=== PATIENT | male | born 1945 | race Caucasian/White ===

== ENCOUNTER 2021-08-29 13:30 | Outpatient (RCR) | payer MEDICARE, BC, SELFPAY ==
--- NOTE | 2021-08-17 14:10 | URNOTE ---
Received request for prior auth for Mimi([id number]). This has been approved as prescribed from 08/12/2021-10/13/2021. REf # [id number]
[2021-08-19 08:52] VITALS: BP 127/75; PULSE 70; RESP 16; TEMP 36; O2SAT 96
[2021-08-19] MEDS: IRON SUCROSE COMPLEX 200 MG in 0.9 % SODIUM CHLORIDE 100 ml 100 ML 440 MG IVPB (09:49)
[2021-08-22 08:34] VITALS: BP 117/70; PULSE 66; RESP 16; TEMP 35.9; O2SAT 97
[2021-08-22] MEDS: IRON SUCROSE COMPLEX 200 MG in 0.9 % SODIUM CHLORIDE 100 ml 100 ML 440 MG IVPB (08:47)
[2021-08-22 08:52] VITALS: BP 117/70; PULSE 66; RESP 16; TEMP 35.9; O2SAT 97
[2021-08-24 08:42] VITALS: BP 124/76; PULSE 91; RESP 16; TEMP 36; O2SAT 96
[2021-08-24] MEDS: IRON SUCROSE COMPLEX 200 MG in 0.9 % SODIUM CHLORIDE 100 ml 100 ML 440 MG IVPB (08:58)
[2021-08-24] MEDS: 0.9 % SODIUM CHLORIDE 250 ml IV (08:58)
[2021-08-24] MEDS: SODIUM CHLORIDE 0.9 % (FLUSH) 10 ML SYRINGE IVF (09:18)
[2021-08-26 08:41] VITALS: BP 123/72; PULSE 72; RESP 16; TEMP 36.4; O2SAT 96
[2021-08-26] MEDS: SODIUM CHLORIDE 0.9 % (FLUSH) 10 ML SYRINGE IVF (09:06)
[2021-08-26] MEDS: IRON SUCROSE COMPLEX 200 MG in 0.9 % SODIUM CHLORIDE 100 ml 100 ML 440 MG IVPB (09:06)
[2021-08-26] MEDS: 0.9 % SODIUM CHLORIDE 250 ml IV (09:06)
[2021-08-26 09:11] VITALS: BP 123/72; PULSE 72; RESP 16; TEMP 36.4; O2SAT 96
[2021-08-29 13:28] VITALS: BP 110/63; PULSE 72; RESP 16; TEMP 36.8; O2SAT 96
[2021-08-29] MEDS: IRON SUCROSE COMPLEX 200 MG in 0.9 % SODIUM CHLORIDE 100 ml 100 ML 440 MG IVPB (13:58)
[2021-08-29] MEDS: 0.9 % SODIUM CHLORIDE 250 ml IV (13:58)
== END 2021-09-11 23:59 | disposition home or self-care (01) ==
LOC: CCIC 13:30
PROVIDERS: PCP Internal Medicine; Visit Provider Internal Medicine
DX: D50.9 Iron deficiency anemia, unspecified (principal)
CPT/HCPCS: 96365; 96374; J1756; J7050

== ENCOUNTER 2021-12-13 13:32 | Outpatient (CLI) | payer MEDICARE, BC, SELFPAY ==
[2021-12-13 09:56] LABS: Albumin* 3.7 g/dL (3.3-5.0); Chloride* 107 mmol/L (96-114); Potassium* 4.5 mmol/L (3.6-5.1); Sodium* 140 mmol/L (135-149)
[2021-12-13 09:58] LABS: Bilirubin Total* 0.6 mg/dL (0.1-1.5); Carbon Dioxide* 25 mmol/L (20-32); Cholesterol* 138 mg/dL (90-199); Creatinine* 1.3 mg/dL (0.5-1.5); Estimated Glomerular Filt Rate 57 ml/min
[2021-12-13 09:59] LABS: Aspartate Amino Transferase* 39 U/L (12-35); Blood Urea Nitrogen* 24 mg/dL (7-30); Glucose* 93 mg/dL (60-115); Total Protein* 6.2 g/dL (6.0-8.3)
[2021-12-13 10:00] LABS: Alanine Aminotransferase* 26 U/L (4-50); Alkaline Phosphatase* 42 U/L (40-150); Calcium* 9.5 mg/dL (8.4-10.6); HDL Cholesterol* 34 mg/dL (>=40); LDL Cholesterol Calculated 54 mg/dL (<100); Triglycerides* 250 mg/dL (40-149)
[2021-12-13 10:04] LABS: Creatinine Urine 152.9 mg/dL
[2021-12-13 10:08] LABS: Microalbumin Creatinine Ratio 10 mg/g (0-30); Microalbumin Urine 2 mg/dL
== END 2021-12-13 13:33 | disposition home or self-care (01) ==
PROVIDERS: PCP Internal Medicine; Visit Provider Internal Medicine
DX: E11.51 Type 2 diabetes mellitus with diabetic peripheral angiopathy without gangrene (principal); D64.9 Anemia, unspecified; E03.9 Hypothyroidism, unspecified; I10 Essential (primary) hypertension
CPT/HCPCS: 80053; 80061; 82043; 82570

== ENCOUNTER 2021-12-15 09:06 | Outpatient (CLI) | payer MEDICARE, BC, SELFPAY ==
[2021-12-15 10:32] LABS: Immature Reticulocyte Fraction 13.3 % (2.3-13.4); Reticulocyte Hemoglobin Equivi 34.9 pg (29.0-35.0); Reticulocyte Percent 2.8 % (0.5-2.0); Reticulocytes Absolute 0.09 # (0.03-0.08)
[2021-12-15 10:33] LABS: Iron* 113 ug/dL (49-181)
[2021-12-15 10:43] LABS: Percent Iron Saturation 33 % (20-50); Total Iron Binding Capacity 347 ug/dL (261-462)
[2021-12-15 11:24] LABS: Vitamin B12* 740 pg/mL (243-894)
[2021-12-17 09:19] LABS: Folate, Serum >22.3 ng/mL (>=5.9)
== END 2021-12-15 09:07 | disposition home or self-care (01) ==
PROVIDERS: PCP Internal Medicine; Visit Provider Internal Medicine
DX: E11.9 Type 2 diabetes mellitus without complications (principal); D64.9 Anemia, unspecified; I10 Essential (primary) hypertension; E78.5 Hyperlipidemia, unspecified
CPT/HCPCS: 82607; 82728; 82746; 83540; 83550; 84443; 85045

== ENCOUNTER 2022-06-12 14:26 | Outpatient (CLI) | payer MEDICARE, BC, SELFPAY | END 2022-06-12 14:27 | disposition home or self-care (01) | PROVIDERS: PCP Internal Medicine; Visit Provider Internal Medicine | DX: R53.83 Other fatigue (principal); D64.9 Anemia, unspecified; E11.51 Type 2 diabetes mellitus with diabetic peripheral angiopathy without gangrene | CPT/HCPCS: 80053; 83540; 83550; 84443 ==

== ENCOUNTER 2022-10-18 07:50 | Outpatient (CLI) | payer MEDICARE, BC, SELFPAY | END 2022-10-18 07:51 | disposition home or self-care (01) | LOC: NFLDREF 12:17 | PROVIDERS: PCP Internal Medicine; Referring Provider Internal Medicine; Visit Provider Internal Medicine | DX: D64.9 Anemia, unspecified (principal) | CPT/HCPCS: 82728; 83540; 83550 ==

== ENCOUNTER 2023-04-17 08:53 | Outpatient (CLI) | payer MEDICARE, BC, SELFPAY | END 2023-04-17 08:54 | disposition home or self-care (01) | LOC: NFLDREF 08:54 | PROVIDERS: PCP Internal Medicine; Visit Provider Internal Medicine | DX: R53.83 Other fatigue (principal); E11.9 Type 2 diabetes mellitus without complications | CPT/HCPCS: 83540; 83550 ==

== ENCOUNTER 2023-05-15 08:15 | Outpatient (RCR) | payer MEDICARE, BC, SELFPAY ==
--- NOTE | 2023-04-24 09:49 | PT.OPEX ---
PT [place] Outpatient Eval PT [facility] Outpatient Eval Start: 04/24/23 07:04 Freq: Status: Active Protocol: Document 04/24/23 07:04 MLS (Rec: 04/24/23 09:47 MLS [id number]) E-signed By Mary nAn Marinelli DPT Physical Therapy Outpatient Evaluation Insurance Information Recert Due Date 07/22/23 Insurance Name Medicare B Medical Diagnosis R26.81 Unsteadiness on feet Treating Diagnosis Balance LE strengthening Referring MD Zain Cline MD Subjective Subjective Patient is a 78 year old male who presents to physical therapy with signs and symptoms consistent with decreased balance and unsteadiness on his feet. He states that ist has been gradually getting worse. He states that he fell a couple weeks ago and tripped on the cement and fell. He was able to get up and did get banged up but nothing permanent. He states that he has some dizziness issues, which are worse in the morning. He states that it gets better as the day goes on usually. He states that the dizziness has gotten a little worse over the past couple of months. He has noticed that his endurance has declined and used to exercise at the [employer] [facility]. Significant past medical history includes diabetes. Patient would like to achieve to get back into being active through physical therapy sessions. 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 69 years 8.1 (7.1 ? 9.0) / 70 ? 79 years 9.2 (8.2 ? 10.2) / 80 ? 99 years 11.3 ( 10.0 ? 12.7) LLE MMT: Hip flexion: R 4-/5 L 4-/5 Hip abduction: R 4-/5 L 4-/5 Hip extension: R 4-/5 L 4-/5 Knee flexion: R 4-/5 L 4-/5 Knee extension: R 4-/5 L 4-/5 TX: Access Code: [email or web address] URL: [email or web address] Date: 04/24/2023 Prepared by: Mary Ann Marinelli Exercises - Supine Bridge - 1 x daily - 7 x weekly - 3 sets - 10 reps - Supine Active Straight Leg Raise - 1 x daily - 7 x weekly - 3 sets - 10 reps - Standing Hip Abduction with Counter Support - 1 x daily - 7 x weekly - 3 sets - 10 reps - Mini Squat with Counter Support - 1 x daily - 7 x weekly - 3 sets - 10 reps - Heel Raises with Counter Support - 1 x daily - 7 x weekly - 3 sets - 10 reps Functional Test Performed & Score Albright Balance Score 49/56 Assessment Assessment/Impression Pt is a 78 year old male who presents with concerns of decreased balance and unsteadiness on his feet. Patient also has notable objective findings including recent fall and decreased strength which are also likely contributing to the problem. Patient is a good candidate for skilled therapy to target deficits described above. Skilled PT intervention is necessary for use of therapeutic exercise manual therapy, neuromuscular re- education, gait training, and therapeutic activity. Functional impairments include difficulty with: standing, walking, and ADLS. See appropriate sections of PT eval for complete list of goals and POC. D/C plan and criteria is for pt to achieve the goals as listed below or until max rehab potential is met. Pt was agreeable with plan of care and goals established. Primary Functional Limitations standing walking ADLs Plan of Care Rehabilitation Potential Good Physical Therapy Goals Within 10-12 weeks: 1.Pt will demonstrate independence in performance of home exercise program with the use of video and/or handouts in order to optimize functional mobility and reduce risk for re-injury. 2.Pt will demonstrate consistent HEP compliance to ensure progress in reaching established goals during course of care. 3.Patient will be able to stand and get dressed without difficulty. 4.Patient will report pain levels <2/10 with all activities in order to improve functional mobility at home, work and during functional leisure activities. 5.Patient will be able to walk up to 4 blocks without pain. 6.Patient will be able to bend and lift household items from the floor to shoulder height to perform ADLs without pain. 7.Pt will be able to ascend/ descend 1 flight of stairs in order to perform ADLs pain free. 8.Pt will exhibit 5 pt improvement in Albright Balance outcome measure to demonstrate functional improvement and progress towards goals Coordination/Communication With Referral Source Treatment Plan/Direct Interventions Neuromuscular Re-ed, Therapeutic Activities, Therapeutic Exercises Patient Will Be Discharged From Therapy Independently Progressing Evaluation Billing Untimed Code Treatment Minutes 30 Complexity Low Certification Information Physician Comment/Change : Physician NPI Number #
== END 2023-07-05 13:29 | disposition home or self-care (01) ==
PROVIDERS: PCP Internal Medicine; Visit Provider Internal Medicine
DX: R26.81 Unsteadiness on feet (principal); Z51.89 Encounter for other specified aftercare
CPT/HCPCS: 97110; 97161

== ENCOUNTER 2023-07-02 08:30 | Outpatient (CLI) | payer MEDICARE, BC, SELFPAY | END 2023-07-02 08:31 | disposition home or self-care (01) | LOC: NFLDREF 07-20 08:28 | PROVIDERS: PCP Internal Medicine; Referring Provider Internal Medicine; Visit Provider Internal Medicine | DX: E11.9 Type 2 diabetes mellitus without complications (principal); E03.9 Hypothyroidism, unspecified; E11.51 Type 2 diabetes mellitus with diabetic peripheral angiopathy without gangrene; E78.5 Hyperlipidemia, unspecified; D64.9 Anemia, unspecified; I70.209 Unspecified atherosclerosis of native arteries of extremities, unspecified extremity | CPT/HCPCS: 80053; 80061; 82043; 82570; 84443 ==

== ENCOUNTER 2023-10-31 08:10 | Outpatient (CLI) | payer MEDICARE, BC, SELFPAY | END 2023-10-31 08:11 | disposition home or self-care (01) | LOC: NFLDREF 11-01 08:46 | PROVIDERS: PCP Internal Medicine; Referring Provider Internal Medicine; Visit Provider Internal Medicine | DX: D64.9 Anemia, unspecified (principal) | CPT/HCPCS: 83540; 83550 ==

== ENCOUNTER 2024-04-01 08:06 | Outpatient (CLI) | payer MEDICARE, BC, SELFPAY | END 2024-04-01 08:07 | disposition home or self-care (01) | PROVIDERS: PCP Internal Medicine; Visit Provider Internal Medicine | DX: D64.9 Anemia, unspecified (principal); E78.5 Hyperlipidemia, unspecified; I10 Essential (primary) hypertension; E03.9 Hypothyroidism, unspecified; E11.9 Type 2 diabetes mellitus without complications; R53.83 Other fatigue; Z12.5 Encounter for screening for malignant neoplasm of prostate | CPT/HCPCS: 80053; 80061; 84439; 84443; G0103 ==

== ENCOUNTER 2024-09-02 08:11 | Outpatient (CLI) | payer MEDICARE, BC, SELFPAY | END 2024-09-02 08:12 | disposition home or self-care (01) | PROVIDERS: PCP Internal Medicine; Visit Provider Internal Medicine | DX: I10 Essential (primary) hypertension (principal); E78.5 Hyperlipidemia, unspecified; E03.9 Hypothyroidism, unspecified; R53.83 Other fatigue; Z12.5 Encounter for screening for malignant neoplasm of prostate | CPT/HCPCS: 80061; 84439; 84443; G0103 ==